=== PATIENT | female | born 1935 | race Caucasian/White ===

== ENCOUNTER 2020-10-11 07:38 | Emergency (ER) | payer MEDICARE, MEDICAID ==
[2020-10-11] MEDS ORDERED: HYDROmorphone 0.5 MG/0.5 ML Syringe IVPUSH ONE ×4 (07:57→10:37)
--- NOTE | 2020-10-11 08:03 | EDM.PDOC ---
ED HPI GENERAL MEDICAL PROBLEM - General Chief Complaint: Lower Extremity Injury/Pain Stated Complaint: MEDICAL Time Seen by Provider: 10/11/20 07:50 Source of Information: Reports: Patient, EMS, Old Records History Limitations: Reports: Other (patient with dementia) - History of Present Illness INITIAL COMMENTS - FREE TEXT/NARRATIVE: 85 yo female resident of a local assisted living facility with dementia was found at the foot of her bed this AM. It is not clear if she fell. She is not able to ambulate and complains of L hip pain with movement of the L leg. No other apparent injuries. Here via EMS. 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 (see below) (none) - Related Data Allergies Allergy/AdvReac Type Severity Reaction Status Date / Time propoxyphene Allergy Cannot Verified 10/11/20 08:17 Remember sulfabenzamide Allergy Cannot Verified 10/11/20 08:17 Remember tramadol Allergy Vomiting Verified 10/11/20 08:17 Home Meds: Home Meds DULoxetine [Cymbalta] 30 mg PO DAILY 01/30/19 [History] Multivitamin [Multivitamins] 1 tab PO DAILY 01/30/19 [History] Aspirin [Halfprin] 81 mg PO DAILY #100 tab.ec 02/02/19 [Rx] Metoprolol Succinate 25 mg PO DAILY #90 tab.er.24h 02/02/19 [Rx] Warfarin [Coumadin] 1 tab PO DAILY 10/11/20 [History] Past Medical History HEENT History: Reports: Impaired Vision Cardiovascular History: Reports: Afib Respiratory History: Reports: COPD 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: Neurological History: Reports: Alzheimers Disease Psychiatric History: Reports: Alzheimers Disease, Dementia, Depression - Past Surgical History HEENT Surgical History: Reports: LASIK Cardiovascular Surgical History: Reports: None Respiratory Surgical History: Reports: None GI Surgical History: Reports: Appendectomy Social & Family History - Family History Family Medical History: Unobtainable Cardiac: Reports: SD - Tobacco Use Tobacco Use Status *Q: Never Tobacco User - Caffeine Use Caffeine Use: Reports: None Review of Systems - Review of Systems Review Of Systems: Unable To Obtain Reason Not Obtained: dementia Constitutional: Reports: No Symptoms Musculoskeletal: Reports: Joint Pain (L hip) ED EXAM, GENERAL - Physical Exam Exam: See Below Exam Limited By: No Limitations General Appearance: Alert, WD/WN, No Apparent Distress Eye Exam: Bilateral Eye: Normal Inspection Ears: Normal External Exam, Normal Canal, Hearing Grossly Normal Ear Exam: Bilateral Ear: Auricle Normal, Canal Normal Nose: Normal Inspection, No Blood Throat/Mouth: Normal Inspection, Normal Lips, Normal Oropharynx, Normal Voice, No Airway Compromise Head: Atraumatic, Normocephalic Neck: Normal Inspection Respiratory/Chest: No Respiratory Distress, Lungs Clear, Normal Breath Sounds, No Accessory Muscle Use Cardiovascular: Regular Rate, Rhythm, No Edema, Tachycardia GI/Abdominal: Soft, Non-Tender Extremities: Normal Inspection, Limited Range of Motion (L hip due to pain). No: Normal Range of Motion, Non-Tender, Pedal Edema, Redness Neurological: Alert, CN II-XII Intact, No Motor/Sensory Deficits. No: Oriented, Normal Cognition Psychiatric: Normal Affect, Normal Mood Skin Exam: Warm, Dry, Intact, Normal Color, No Rash Course - Vital Signs Last Recorded V/S: Last Vital Signs Temp 36.3 C 10/11/20 07:51 Pulse 128 H 10/11/20 09:26 Resp 16 10/11/20 07:51 BP 138/79 10/11/20 09:26 Pulse Ox 95 10/11/20 07:51 - Orders/Labs/Meds Orders: Active Orders 24 hr Category Date Time Status Cardiac Monitoring [RC] .As Directed Care 10/11/20 07:58 Active Gold Catheter Insertion [Insert Urinary Catheter] [OM. Care 10/11/20 08:45 Ordered PC] Q24H Urinary Catheter Assessment [RC] ASDIRECTED Care 10/11/20 08:40 Active UA W/MICROSCOPIC [URIN] Stat Lab 10/11/20 09:41 Ordered Sodium Chloride 0.9% [Saline Flush] Med 10/11/20 07:56 Active 10 ml FLUSH ASDIRECTED PRN Saline Lock Insert [OM.PC] Routine Oth 10/11/20 07:56 Ordered Medication Orders Sodium Chloride (Sodium Chloride 0.9% 10 Ml Syringe) 10 ml FLUSH ASDIRECTED PRN PRN Reason: Keep Vein Open Last Admin: 10/11/20 08:09 Dose: 10 ml Documented by: NARCISA Labs: Laboratory Tests 10/11/20 10/11/20 10/11/20 Range/Units 08:50 08:50 08:50 WBC 11.2 H (4.5-11.0) K/uL RBC 5.03 (3.30-5.50) M/uL Hgb 14.5 (12.0-15.0) g/dL Hct 44.8 (36.0-48.0) % MCV 89 (80-98) fL MCH 29 (27-31) pg MCHC 32 (32-36) % Plt Count 226 (150-400) K/uL PT 22.4 H (9.5-12.0) sec INR 2.08 H (0.80-1.20) Sodium 138 L (140-148) mmol/L Potassium 4.3 (3.6-5.2) mmol/L Chloride 102 (100-108) mmol/L Carbon Dioxide 29 (21-32) mmol/L Anion Gap 11.3 (5.0-14.0) mmol/L BUN 20 H (7-18) mg/dL Creatinine 1.0 (0.6-1.0) mg/dL Est Cr Clr Drug Dosing 37.10 mL/min Estimated GFR (MDRD) 52 L (>60) Glucose 122 H (74-106) mg/dL Calcium 8.7 (8.5-10.1) mg/dL Meds: Medications Generic Name Dose Route Start Last Admin Trade Name Erica PRN Reason Stop Dose Admin Sodium Chloride 10 ml 10/11/20 07:56 10/11/20 08:09 Sodium Chloride 0.9% 10 Ml Syringe FLUSH 10 ml ASDIRECTED PRN Administration Keep Vein Open Discontinued Medications Generic Name Dose Route Start Last Admin Trade Name Freq PRN Reason Stop Dose Admin Hydromorphone HCl 0.5 mg 10/11/20 07:57 10/11/20 08:09 Hydromorphone 0.5 Mg/0.5 Ml Syringe IVPUSH 10/11/20 07:58 0.5 mg ONETIME ONE Administration Metoprolol Succinate 25 mg 10/11/20 08:42 10/11/20 09:26 Metoprolol Succinate 25 Mg Tab.Er PO 10/11/20 08:43 25 mg ONETIME ONE Administration Metoprolol Tartrate 25 mg 10/11/20 08:41 Metoprolol Tartrate 25 Mg Tab PO 10/11/20 08:42 ONETIME ONE - Radiology Interpretation Free Text/Narrative:: L hip and pelvis X-rays- IMPRESSION: Impacted, rotated subcapital femoral neck fracture of the left hip with associated soft tissue swelling. Dictated by Gordon Crespo MD @ 10/11/2020 9:07:[address]-Impression: Age-related and remote ischemic changes of the brain without evidence of acute intracranial abnormality. Please note that all CT scans at this facility use dose modulation, iterative reconstruction, and/or weight-based dosing when appropriate to reduce radiation dose to as low as reasonably achievable. Dictated by Gordon Crespo MD @ 10/11/2020 9:27:[address] Results Date: 10/11/20 CT Results Time: 09:37 Departure - Departure Time of Disposition: 10:25 Disposition: DC/Tfer to Acute Hospital 02 Condition: Fair Clinical Impression: Left displaced femoral neck fracture - Discharge Information *PRESCRIPTION DRUG MONITORING PROGRAM REVIEWED*: Not Applicable *COPY OF PRESCRIPTION DRUG MONITORING REPORT IN PATIENT ROBIN: Not Applicable Referrals: PCP,None [Primary Care Provider] - Forms: ED Department Discharge Sepsis Event Note (ED) - Evaluation Sepsis Screening Result: No Definite Risk - Focused Exam Vital Signs: Vital Signs Temp Pulse Pulse Resp BP BP Pulse Ox 10/11/20 09:26 128 H 138/79 10/11/20 07:51 36.3 C 106 H 16 106/59 L 95 10/11/20 07:49 36.3 C 106 H 16 106/59 L 95 - My Orders Last 24 Hours: My Active Orders 10/11/20 07:56 Sodium Chloride 0.9% [Saline Flush] 10 ml FLUSH ASDIRECTED PRN Saline Lock Insert [OM.PC] Routine 10/11/20 07:58 Cardiac Monitoring [RC] .As Directed 10/11/20 08:40 Urinary Catheter Assessment [RC] ASDIRECTED 10/11/20 08:45 Gold Catheter Insertion [Insert Urinary Catheter] [OM.PC] Q24H 10/11/20 09:41 UA W/MICROSCOPIC [URIN] Stat - Assessment/Plan Last 24 Hours: My Active Orders 10/11/20 07:56 Sodium Chloride 0.9% [Saline Flush] 10 ml FLUSH ASDIRECTED PRN Saline Lock Insert [OM.PC] Routine 10/11/20 07:58 Cardiac Monitoring [RC] .As Directed 10/11/20 08:40 Urinary Catheter Assessment [RC] ASDIRECTED 10/11/20 08:45 Gold Catheter Insertion [Insert Urinary Catheter] [OM.PC] Q24H 10/11/20 09:41 UA W/MICROSCOPIC [URIN] Stat
[2020-10-11] MEDS: Sodium Chloride 0.9% 10 ML Syringe FLUSH PRN ×2 (08:09→10:36)
[2020-10-11] MEDS ORDERED: Metoprolol Tartrate 25 MG Tab PO ONE (08:41)
[2020-10-11] MEDS ORDERED: Metoprolol Succinate 25 MG Tab.ER PO ONE (08:42)
--- NOTE | 2020-10-11 09:08 | CRLCR ---
For Patients: As a result of the Cures Act, medical imaging exams and procedure reports are released immediately into your electronic medical record. You may view this report before your referring provider. If you have questions, please contact your health care provider. INDICATION: Pain TECHNIQUE: Single view pelvis with AP and Frogleg views left hip COMPARISONS: None available. FINDINGS: Femoral heads are well-seated in the acetabula. There is an impacted, rotated subcapital femoral neck fracture. No other displaced fractures identified. There is moderate degenerative change of the bilateral hips. The soft tissues are unremarkable. IMPRESSION: Impacted, rotated subcapital femoral neck fracture of the left hip with associated soft tissue swelling. Dictated by Gordon Crespo MD @ 10/11/2020 9:07:[address] Gordon Crespo @ Oct 11 2020 9:07AM
--- NOTE | 2020-10-11 09:27 | CRLCT ---
For Patients: As a result of the Century Cures Act, medical imaging exams and procedure reports are released immediately into your electronic medical record. You may view this report before your referring provider. If you have questions, please contact your health care provider. Indication: Fall, rule out head bleed Technique: Volumetric multidetector CT images of the head were obtained without the administration of low osmolar intravenous contrast. Comparison: None available Findings: There is no intra-axial or extra-axial fluid collection. There is no mass effect or midline shift. There is age-related cortical atrophy with mild sulcal widening and ex vacuo dilatation of the lateral ventricles. 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 Otherwise the brain parenchyma is preserved in attenuation and javier-white differentiation with moderate chronic small vessel disease changes. Scleral banding device of the left globe is appreciated otherwise, the orbits are unremarkable. The bony calvarium is grossly intact. The paranasal sinuses are clear. The mastoid air cells are well aerated. Impression: Age-related and remote ischemic changes of the brain without evidence of acute intracranial abnormality. Please note that all CT scans at this facility use dose modulation, iterative reconstruction, and/or weight-based dosing when appropriate to reduce radiation dose to as low as reasonably achievable. Dictated by Gordon Crespo MD @ 10/11/2020 9:27:[address] Gordon Crespo @ Oct 11 2020 9:27AM
[2020-10-11] MEDS ORDERED: Ondansetron 4 MG/2 ML SDV IVPUSH ONE (10:05)
== END 2020-10-11 11:04 ==
LOC: JP.ED 07:38
DX: S72.012A Unspecified intracapsular fracture of left femur, initial encounter for closed fracture (principal); I48.91 Unspecified atrial fibrillation; J44.9 Chronic obstructive pulmonary disease, unspecified; G30.9 Alzheimer's disease, unspecified; F02.80 Dementia in other diseases classified elsewhere, unspecified severity, without behavioral disturbance, psychotic disturbance, mood disturbance, and anxiety; Z88.8 Allergy status to other drugs, medicaments and biological substances; Z88.2 Allergy status to sulfonamides; Z79.82 Long term (current) use of aspirin; Z79.01 Long term (current) use of anticoagulants; Z88.5 Allergy status to narcotic agent; Z79.899 Other long term (current) drug therapy; W19.XXXA Unspecified fall, initial encounter
CPT/HCPCS: 36415; 51702; 70450; 73502; 80048; 81001; 85027; 85610; 96374; 96375; 96376; 99284; A9270; J1170; J2405

== ENCOUNTER 2022-04-07 17:46 | Emergency (ER) | payer MEDICARE, MEDICAID ==
[2022-04-07] MEDS ORDERED: Amiodarone 150 MG/3 ML SDV IVPUSH ONE (18:20)
[2022-04-07] MEDS ORDERED: Lactated Ringers 1,000 ML IV SCH (18:30)
[2022-04-07 18:41] LABS: CORONAVIRUS COVID-19 NAA POSITIVE (NEGATIVE)
[2022-04-07] MEDS ORDERED: Diltiazem 25 MG/5 ML SDV IVPUSH ONE (18:54)
[2022-04-07 19:04] LABS: ESTIMATED GFR 71 mL/min (>60)
[2022-04-07 19:06] LABS: TROPONIN I HIGH SENSITIVITY 100.9 pg/mL (<=60.3)
[2022-04-07] MEDS ORDERED: Diltiazem 120 MG Cap.CD PO SCH (20:30)
== END 2022-04-07 21:30 ==
LOC: JP.ED 17:46
DX: U07.1 COVID-19 (principal); I48.91 Unspecified atrial fibrillation; G30.9 Alzheimer's disease, unspecified; F02.80 Dementia in other diseases classified elsewhere, unspecified severity, without behavioral disturbance, psychotic disturbance, mood disturbance, and anxiety; J44.9 Chronic obstructive pulmonary disease, unspecified; Z88.8 Allergy status to other drugs, medicaments and biological substances; Z88.2 Allergy status to sulfonamides; Z88.5 Allergy status to narcotic agent; Z79.82 Long term (current) use of aspirin; Z79.899 Other long term (current) drug therapy; Z79.01 Long term (current) use of anticoagulants
CPT/HCPCS: 0241U; 36415; 80053; 83605; 84443; 84484; 85025; 86140; 87040; 93005; 93010; 96361; 96374; 99285; 99285-25; A9270-GY; J3490; J7120